=== PATIENT | female | born 1935 | race Caucasian/White ===

== ENCOUNTER 2017-06-18 09:14 | Inpatient (IN) | payer MEDICARE, MEDICAID ==
[2017-06-18] MEDS ORDERED: Albuterol/Ipratropium Neb 3 ML AERS HHN ONE ×2 (10:02→10:24)
--- NOTE | 2017-06-18 10:11 | ED Physician Chart ---
ED Chief Complaint/HPI - Patient Information Date Seen:: 06/18/17 Time Seen:: 10:00 Chief Complaint:: Wheeze and weakness History of Present Illness:: 81 yo female was brought from [facility] to ER for evaluation of weakness, wheezing and SOB. Allergies:: Allergies Allergy/AdvReac Type Severity Reaction Status Date / Time No Known Allergies Allergy Verified 06/18/17 09:17 Vitals:: Vital Signs - 8 hr 06/18/17 09:19 Temp 97.8 F HR 75 RR 16 BP 156/65 O2 Sat % 83 ED Review of Systems - Review of Systems General/Constitutional: Weakness Skin: No bruising Head: No headache Eyes: No pain ENT: No nasal drainage Neck: No neck pain Cardio Vascular: No chest pain Pulmonary: SOB, Wheezing GI: No nausea, No vomiting G/U: Other (urinary incontinent) ED Past Medical History - Past Medical History Past Medical History: HTN, CAD, Dyslipidemia, Thyroid disorder (thyroid mass), Cataract, Other (MS, dysphagia) Social History: Non Smoker, No Alcohol, No Drug Use Psychiatricy History: Other (anxiey) Family Medical History - Family Member Sister History Unknown: Yes ED Physical Exam - Physical Examination General/Constitutional: Awake Head: Atraumatic Eyes: PERRL, EOMI Skin: No ecchymosis ENMT: Nasal exam nl Neck: No nuchal rigidity Other Respiratory comments:: Wheeze Cardio Vascular: RRR, NL S1 S2 Other Cardio Vascular comments:: II/ systolic murmur GI: No tenderness/rebounding/guarding Other Extremities comments:: weakness, motor strength 4/5 all 4 extremities Other Neuro/Psych comments:: oriented x 3 ED Labs/Radiology/EKG Results - Radiology Results Results: CXR: LLL pneumonia and effusion, CHF - EKG Interpretations EKG Time:: 10:27 Rate & Rhythm: Atrial premature complex [place]: Left ventricular hypertrophy ED Assessment - Assessment General Assessment: LLL pneumonia Leukocytosis Hypoxemia UTI Assessment/Comments:: DuoNeb Rocephin Azithromycin NS 1L bolus Admit to med surg with tele ED Septic Shock - . Is Septic Shock (SBP<90, OR Lactate>4 mmol\L) present?: No - <6hrs of presentation: Vital Signs: Vital Signs - 8 hr 06/18/17 09:19 Temp 97.8 F HR 75 RR 16 BP 156/65 O2 Sat % 83 ED Reassessment (Disposition) - Reassessment Reassessment Condition:: Improved - Patient Disposition Discharge/Transfer:: Acute Care w/in this hosp Admitting Medical Physician:: Sinai Coto
[2017-06-18 10:31] LABS: HEMATOCRIT 35.5 % (41.0-60); HEMOGLOBIN 11.5 gm/dL (12-16); MEAN CELL VOLUME 92.3 fl (81-100); MEAN CORPUSCULAR HGB CONC 32.5 pg (28.0-36.0); MEAN PLATELET VOLUME 8.8 fl; PLATELET COUNT 208 Th/cmm (150-400); RED BLOOD COUNT 3.84 Mil/cmm (3.80-5.20)
[2017-06-18 10:35] LABS: MANUAL DIFF REQUIRED? YES
--- NOTE | 2017-06-18 10:43 | Diagnostic Imaging Report ---
Exam: Portable chest x-ray. HISTORY: Shortness of breath. Findings: Portable examination of the chest at 1029 hours reviewed. No prior studies available comparison The study demonstrates left lower lobe pneumonia superimposed effusion. Mild congestion present. Mediastinal structures midline the heart is not enlarged. Bony thorax intact. IMPRESSION: Left lower lobe pneumonia and effusion follow-up dictation recommended. Congestive heart failure changes bilaterally.
[2017-06-18 10:50] LABS: ALLEN TEST YES; pH 7.37 (7.35-7.45)
[2017-06-18] MEDS ORDERED: cefTRIAXone 1 GM in Sodium Chloride 0.9% 50 ML IV ONE (10:55)
[2017-06-18] MEDS ORDERED: Azithromycin 500 MG in Sodium Chloride 0.9% 250 ML IV ONE (10:56)
[2017-06-18 11:02] LABS: ALBUMIN 3.3 gm/dL (3.7-5.3); ALKALINE PHOSPHATASE 99 U/L (34-104); BUN - UREA NITROGEN 46 mg/dL (7-25); CALCIUM SERUM 9.9 mg/dL (8.6-10.3); CARBON DIOXIDE 28.3 mEq/L (21.0-31.0); CHLORIDE 97 mEq/L (98-107); CREATININE - SERUM 1.1 mg/dL (0.6-1.2); GLUCOSE 125 mg/dL (70-105); POTASSIUM SERUM 4.4 mEq/L (3.5-5.1); SGOT 15 U/L (13-39); SGPT/ALT 7 U/L (7-52)
[2017-06-18 11:20] LABS: ANION GAP 12.1 (7.0-16.0); SODIUM SERUM 133 mEq/L (136-145)
[2017-06-18 11:21] LABS: ALB/GLOB RATIO 0.7 (1.0-1.8); TOTAL PROTEIN,SERUM 7.9 gm/dL (6.0-8.3)
[2017-06-18] MEDS ORDERED: Sodium Chloride 0.9% 1,000 ML IV ONE (11:26)
[2017-06-18 11:39] LABS: BAND NEUTROPHILE 4 % (0-10); LYMPHOCYTE 15 % (20-50); MONOCYTE 3 % (2-10); NEUTROPHILS 74 % (40-80); TOTAL CELLS COUNTED 100
[2017-06-18] MEDS ORDERED: Albuterol Nebulizer 2.5mg/3mL HHN ONE (11:39)
[2017-06-18] MEDS ORDERED: Ipratropium Neb 0.5 mg/2.5 mL UD HHN ONE (11:39)
[2017-06-18 11:40] LABS: BASOPHIL 3 % (0-3); EOSINOPHIL 1 % (0-5)
[2017-06-18 11:55] LABS: URINE MICROSCOPIC INDICATED? YES; URINE SOURCE CATH
[2017-06-18 12:04] LABS: URINE BILIRUBIN SMALL (NEGATIVE); URINE BLOOD SMALL (NEGATIVE); URINE GLUCOSE (UA) NEGATIVE (NEGATIVE); URINE KETONE NEGATIVE (NEGATIVE); URINE LEUKOCYTE ESTERASE MODERATE (NEGATIVE); URINE NITRATE NEGATIVE (NEGATIVE); URINE PROTEIN 30 mg/dL (NEGATIVE)
[2017-06-18] MEDS ORDERED: Ipratropium Neb 0.5 mg/2.5 mL UD HHN PRN (12:19)
[2017-06-18 12:22] LABS: URINE CLARITY CLOUDY (CLEAR); URINE COLOR YELLOW
[2017-06-18 13:09] LABS: URINE BACTERIA 3+ /hpf (NONE SEEN); URINE EPITHELIAL CELLS FEW /lpf (FEW)
[2017-06-18] MEDS: Hydrocodone/APAP 5mg/325mg Tab PO PRN (14:38)
[2017-06-18] MEDS: Sodium Chloride 0.9% 1,000 ML IV SCH (14:41)
[2017-06-18 14:57] LABS: A1C % 6.3 % (4.0-6.0)
[2017-06-18] MEDS ORDERED: Pneumococcal Vaccine 0.5 mL Vial IM ONE (16:12)
[2017-06-18] MEDS: Albuterol/Ipratropium Neb 3 ML AERS HHN SCH (21:01)
[2017-06-18] MEDS: Budesonide 0.5 Mg/2 mL Ud HHN SCH (21:02)
--- NOTE | 2017-06-19 00:02 | Consultation ---
DATE OF CONSULTATION: 06/18/2017 PULMONARY AND CRITICAL CARE CONSULTATION REASON FOR CONSULTATION: Shortness of breath with abnormal chest x-ray. CONSULT NOTE: This is an 81-year-old female who apparently lives with her son in [place]. Initially she tells me she fell down ____ hurting the right arm, but subsequently she claims that she has coughing and more shortness of breath and feels more weak, so came to the hospital. No chest pain. Denies of any other fever or chills prior to coming to the hospital, though the patient is not the best historian at this time. She has been walking very minimally with a walker, etc. No other related symptomatology. PAST MEDICAL HISTORY: History of cardiac problem, diabetic problem, and hypertension problem. ALLERGIES: Nil. MEDICATIONS: She does take some codeine at home. History is very minimal to nil as the patient seemingly is a poor historian. PHYSICAL EXAMINATION: GENERAL: This is an elderly looking female, awake, very slow, and not in any acute distress. VITAL SIGNS: The patient's recorded vitals: Temperature is 100.2, blood pressure is 115/47, saturation in mid 90s on 2 liters. HEENT: Examination of the head is essentially unremarkable. Pupils appear to be equal and reactive to light. Conjunctivae are slightly pallor. Oral cavity seems to be with partial dentures with small oropharyngeal opening. NECK: Very short. CHEST: On auscultation, there is diminished air entry with occasional rhonchi. HEART: Distant. No gallop or murmur. ABDOMEN: Slightly protuberant, obese, and nontender. EXTREMITIES: Shows some deformed joint, probably from osteoarthritis. Very minimal peripheral edema. DIAGNOSTIC STUDIES: The patient's chest x-ray shows some haziness in the left side indicative of effusion with some also right perihilar fullness. LABORATORY DATA: White count is 18,000, hemoglobin 8.5 lymphocytes 15. ABG shows pCO2 of 59, pO2 of 52. Electrolytes are okay with BUN 46, sugar is 125, hemoglobin A1c 6.3. BNP is 91. Urine shows cloudy urine with small moderate amount of positive leukocyte esterase and urine bacteria few, 3+. ASSESSMENT: 1. The patient is in acute on chronic respiratory failure, most likely this is possibly healthcare-associated pneumonia with possibly parapneumonic effusion. 2. Congestive heart failure, possible, but doubt it with history of previous cardiac problem. 3. Suspect severe obstructive sleep apnea syndrome with cor pulmonale, primarily one of the issues that we deal with. 4. Urosepsis with recent injury of the right shoulder and history of morbid obesity, diabetes mellitus, and hypertension. PLANS AND SUGGESTIONS: We will go ahead and get aggressive inhalation treatment, bronchodilator therapy. We will screen for flu antigen and we will get empiric antibiotics, empirical dose of Lasix, and also we will go ahead and empirically put her on a BiPAP and follow up with some lab studies, etc. in next 24-48 hours and see how she does and go from there. JOB# [id number]
[2017-06-19] MEDS: Morphine Sulfate 2 mg/mL 1mL Syr IVP PRN (01:58)
[2017-06-19] MEDS: Hydrocodone/APAP 5mg/325mg Tab PO PRN ×3 (03:28→20:23)
[2017-06-19 06:19] LABS: ANION GAP 8.8 (7.0-16.0); BUN - UREA NITROGEN 39 mg/dL (7-25); CALCIUM SERUM 8.6 mg/dL (8.6-10.3); CARBON DIOXIDE 30.3 mEq/L (21.0-31.0); CHLORIDE 100 mEq/L (98-107); CREATININE - SERUM 0.8 mg/dL (0.6-1.2); GLUCOSE 112 mg/dL (70-105); POTASSIUM SERUM 4.1 mEq/L (3.5-5.1); SODIUM SERUM 135 mEq/L (136-145)
[2017-06-19 06:29] LABS: ALB/GLOB RATIO 0.8 (1.0-1.8); ALBUMIN 2.7 gm/dL (3.7-5.3); BILIRUBIN,DIRECT 0.23 mg/dL (0.0-0.2); BILIRUBIN,TOTAL 0.6 mg/dL (0.3-1.0); TOTAL PROTEIN,SERUM 6.1 gm/dL (6.0-8.3)
[2017-06-19 06:48] LABS: % EOSINOPHILS 2.4 % (0.0-5.0); % LYMPHOCYTES 9.7 % (20.0-50.0); % NEUTROPHILS 81.9 % (40.0-80.0); EOSINOPHILE ABSOLUTE 0.3 Th/cmm (0.1-0.4); HEMOGLOBIN 9.9 gm/dL (12-16); LYMPHOCYTE ABSOLUTE 1.1 Th/cmm (1.5-3.0); MEAN CELL VOLUME 90.9 fl (81-100); MEAN CORPUSCULAR HEMOGLOBIN 30.7 pg (27.0-31.0); MEAN CORPUSCULAR HGB CONC 33.7 pg (28.0-36.0); MEAN PLATELET VOLUME 8.8 fl; MONOCYTE ABSOLUTE 0.7 Th/cmm (0.3-1.0); NEUTROPHILE ABSOLUTE 8.9 Th/cmm (1.8-8.0); PLATELET COUNT 174 Th/cmm (150-400); RED BLOOD COUNT 3.24 Mil/cmm (3.80-5.20); RED CELL DISTRIBUTION WIDTH 13.5 % (11.5-20.0)
[2017-06-19 07:16] LABS: HEMATOCRIT 29.4 % (41.0-60)
[2017-06-19] MEDS: Budesonide 0.5 Mg/2 mL Ud HHN SCH ×2 (07:27→19:51)
[2017-06-19] MEDS: Albuterol/Ipratropium Neb 3 ML AERS HHN SCH ×4 (07:45→19:51)
--- NOTE | 2017-06-19 08:25 | History & Physical ---
ADMIT DATE: 06/18/2017 CHIEF COMPLAINT: Severe shortness of breath, fevers, cough, and congestion. HISTORY OF PRESENT ILLNESS: The patient is a pleasant 81-year-old obese female. She has history of hypertension, COPD, chronic pain, and unsteady gait. At the [facility] facility, she started experiencing severe cough, shortness of breath, and has decreased O2 saturation. She was sent to the hospital where she was found to have aspiration pneumonia. PAST MEDICAL HISTORY: Significant for depression, hypertension, anxiety, and obesity. SOCIAL HISTORY: Denies any alcohol, tobacco, or drug abuse. FAMILY HISTORY: Noncontributory. ALLERGIES: No known drug allergies. PAST SURGICAL HISTORY: No recent major surgeries. MEDICATIONS: Home medications reviewed and reconciled. Medications, all as mentioned above. All medications reviewed and reconciled. REVIEW OF SYSTEMS: GENERAL: Positive recent fatigue and decreased appetite. HEENT: No recent head trauma or change in vision, taste, hearing, or smell. Oral: Denies any pain or discharge. NECK: No recent tracheal deviation. ABDOMEN: No recent pain or distension. RESPIRATORY: Positive for cough, congestion, and shortness of breath. SKIN: No recent rashes. EXTREMITIES: She has history of edema. NEUROLOGIC: She has history of neuropathic pain in the lower extremities bilaterally. MUSCULOSKELETAL: Positive for unsteady gait. PHYSICAL EXAMINATION: VITAL SIGNS: Temperature is 97.9 degrees, heart rate is 83, respirations 79, blood pressure 120/59. Currently, no pain. GENERAL: No acute distress, awake, alert, but weak. HEENT: No acute issues. NECK: Trachea is midline. No JVD. CARDIOVASCULAR: Regular rate and rhythm. ABDOMEN: Nontender, nondistended. RESPIRATORY: Decreased breath sounds bilaterally. Rales and congestion. She has cough and congestion bilaterally. SKIN: No rashes. PSYCHIATRIC: No psychosis or hallucinations. NEUROLOGIC: Stable. MUSCULOSKELETAL: Decreased muscle strength in lower extremities. LABORATORY DATA: White count is 18, hemoglobin 11.5, platelet count 208,000. ABG shows pH of 7.37, pO2 52, pCO2 59. Sodium 133, potassium is 4.4, BUN 46, creatinine 1.1, glucose is 125. Hemoglobin A1c is 6.3. ASSESSMENT/PLAN: 1. Aspiration pneumonia. 2. Acute hypoxemic respiratory failure. 3. Sepsis. 4. Moderate malnutrition. 5. Urinary tract infection. 6. Hypertension. 7. Obese. 8. Congestive heart failure. 9. Diabetes mellitus. PLAN: The patient is on breathing treatments, O2, and Dr. Nava saw the patient and put her on BiPAP. She is breathing better today. Continue breathing treatments. She is on IV Zosyn. She also has CHF changes on her chest x-ray. I will consult Pulmonary as well. ABG shows acute respiratory failure. Her white count is trending down. Continue breathing treatments. JOB# [id number]
[2017-06-19] MEDS: Escitalopram Oxalate 5 mg Tab PO SCH (09:18)
[2017-06-19] MEDS: Atorvastatin Calcium 10 MG TAB PO SCH (09:19)
[2017-06-19 09:23] LABS: pH 7.39 (7.35-7.45)
[2017-06-19 09:24] LABS: ALLEN TEST Y
--- NOTE | 2017-06-19 09:57 | Diagnostic Imaging Report ---
CT scan of the chest without intravenous contrast HISTORY: Shortness of breath Total DLP equals 404 CTDI equals 11.6 Axial sections were obtained from a level above the clavicles down to level below the diaphragm. The exam demonstrates partial visualization of markedly enlarged right lobe of the thyroid gland with evidence of nodular changes. 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 Nodular changes also noted within a mildly enlarged left lobe of the thyroid gland. A thyroid ultrasound exam would provide additional assessment and evaluation is needed. There is a moderate left pleural effusion. Pleural thickening along with nonspecific infiltrate noted in the right lower lobe. Pneumonia cannot be excluded. Parenchymal changes noted in the left perihilar region that may be related to compressed lung. The heart is enlarged. Coronary artery and atherosclerotic vascular calcification noted. Limited sections below the diaphragm demonstrate a markedly dilated gallbladder. Significance should be correlated clinically. If necessary, sonography may be helpful. IMPRESSION: 1. Cardiomegaly with evidence of severe coronary artery and atherosclerotic vascular calcification 2. Small to moderate left pleural effusion 3. Right lower lobe infiltrate/consolidation/atelectasis. Mild changes also noted in the left lower lobe. Pneumonia cannot be excluded. 4. Markedly enlarged right lobe of the thyroid gland with nodular changes associated with displacement of the trachea to the left. Mild enlargement left lobe of the thyroid gland. A thyroid ultrasound exam would provide additional assessment detail if needed. 5. Dilated gallbladder. Significance should be correlated clinically and with sonography if needed.
[2017-06-19] MEDS ORDERED: Probiotic Screen MC PRN (15:30)
[2017-06-19] MEDS: Sodium Chloride 0.9% 1,000 ML IV SCH (17:44)
--- NOTE | 2017-06-19 23:22 | Progress Notes ---
DATE: 06/19/2017 PROBLEM LIST: 1. Abnormal chest x-ray. 2. Suspect obstructive sleep apnea syndrome. 3. History of fall with right shoulder pain. SYMPTOMS: The patient is complaining of pain on the left heel, but otherwise unremarkable. Also, complained pain in the right shoulder, less coughing, less wheezing, less shortness of breath. No respiratory distress, etc. PHYSICAL EXAMINATION: VITAL SIGNS: The patient's temperature is 97.2, blood pressure is 103/50, and saturation 96 on 2 liters. NECK: Veins not visualized. CHEST: Shows diminished air entry at the left base. HEART: Regular. ABDOMEN: Soft, nontender. EXTREMITIES: Left leg shows some tenderness in the calf. Otherwise, unremarkable. LABORATORY DATA: The patient's lab test shows WBC 11,000, hemoglobin 10.9 and ABG shows compensated respiratory acidemia and a pO2 is 60 on 28% of oxygen. CT reviewed appears to be chronic interstitial changes in the left base with a [id number] effusion on the left side. ASSESSMENT: The patient is clinically stable. ____ left side exact reason is not clearcut, previous appears to be chronic changes on the left base. PLANS AND SUGGESTIONS: We will continue current management, aggressive inhalation treatment, nocturnal BiPAP. We will check the DVTs study on the left leg and go from there. JOB# [id number]
[2017-06-20] MEDS: Morphine Sulfate 2 mg/mL 1mL Syr IVP PRN ×2 (01:45→12:43)
[2017-06-20] MEDS: Hydrocodone/APAP 5mg/325mg Tab PO PRN ×2 (05:41→16:19)
[2017-06-20 06:12] LABS: % EOSINOPHILS 4.7 % (0.0-5.0); % LYMPHOCYTES 13.7 % (20.0-50.0); % MONOCYTES 7.4 % (2.0-10.0); % NEUTROPHILS 74.2 % (40.0-80.0); EOSINOPHILE ABSOLUTE 0.3 Th/cmm (0.1-0.4); HEMATOCRIT 30.7 % (41.0-60); HEMOGLOBIN 10.4 gm/dL (12-16); MEAN CELL VOLUME 91.7 fl (81-100); MEAN CORPUSCULAR HGB CONC 33.8 pg (28.0-36.0); MEAN PLATELET VOLUME 8.1 fl; MONOCYTE ABSOLUTE 0.5 Th/cmm (0.3-1.0); NEUTROPHILE ABSOLUTE 5.2 Th/cmm (1.8-8.0); PLATELET COUNT 192 Th/cmm (150-400); RED BLOOD COUNT 3.35 Mil/cmm (3.80-5.20); RED CELL DISTRIBUTION WIDTH 13.5 % (11.5-20.0)
[2017-06-20 06:55] LABS: ANION GAP 8.3 (7.0-16.0); BUN - UREA NITROGEN 26 mg/dL (7-25); CARBON DIOXIDE 32.4 mEq/L (21.0-31.0); CHLORIDE 102 mEq/L (98-107); CREATININE - SERUM 0.7 mg/dL (0.6-1.2); GLUCOSE 105 mg/dL (70-105); POTASSIUM SERUM 3.7 mEq/L (3.5-5.1); SODIUM SERUM 139 mEq/L (136-145)
[2017-06-20] MEDS: Budesonide 0.5 Mg/2 mL Ud HHN SCH ×2 (07:07→19:48)
[2017-06-20] MEDS: Albuterol/Ipratropium Neb 3 ML AERS HHN SCH ×4 (07:07→19:48)
[2017-06-20] MEDS: Escitalopram Oxalate 5 mg Tab PO SCH (09:02)
[2017-06-20] MEDS: Atorvastatin Calcium 10 MG TAB PO SCH (09:02)
[2017-06-20] MEDS: Lactobacillus Rhamnosus GG 15 Billion CFU CAP.SPRINK PO SCH (09:02)
--- NOTE | 2017-06-20 09:28 | General Progress Note ---
Subjective - Review of Systems Service Date: 06/20/17 Subjective: Pt seen and eval. Resting in bed. SOB with exertion. No fevers or chills. No cough. Weak. Low appetite. Seen by pulm as well. Bipap ordered. Objective - Results Result Diagrams: 06/20/17 06:02 06/20/17 06:02 Recent Labs: Laboratory Last Values WBC 7.0 Th/cmm (4.8-10.8) D 06/20/17 06:02 RBC 3.35 Mil/cmm (3.80-5.20) L 06/20/17 06:02 Hgb 10.4 gm/dL (12-16) L 06/20/17 06:02 Hct 30.7 % (41.0-60) L 06/20/17 06:02 MCV 91.7 fl (81-100) 06/20/17 06:02 MCH 31.0 pg (27.0-31.0) 06/20/17 06:02 MCHC Differential 33.8 pg (28.0-36.0) 06/20/17 06:02 RDW 13.5 % (11.5-20.0) 06/20/17 06:02 Plt Count 192 Th/cmm (150-400) 06/20/17 06:02 MPV 8.1 fl 06/20/17 06:02 Neutrophils % 74.2 % (40.0-80.0) 06/20/17 06:02 Band Neutrophils % 4 % (0-10) 06/18/17 10:20 Lymphocytes % 13.7 % (20.0-50.0) L 06/20/17 06:02 Monocytes % 7.4 % (2.0-10.0) 06/20/17 06:02 Eosinophils % 4.7 % (0.0-5.0) 06/20/17 06:02 Basophils % 0.0 % (0.0-2.0) 06/20/17 06:02 Neutrophils (Manual) 74 % (40-80) 06/18/17 10:20 Lymphocytes 15 % (20-50) L 06/18/17 10:20 Monocytes 3 % (2-10) 06/18/17 10:20 Eosinophils 1 % (0-5) 06/18/17 10:20 Basophils 3 % (0-3) 06/18/17 10:20 Specimen Source ARTERIAL 06/19/17 09:12 Sample Site RL 06/19/17 09:12 pH 7.39 (7.35-7.45) 06/19/17 09:12 pCO2 55.0 mmHg (35.0-45.0) H 06/19/17 09:12 pO2 60.0 mmHg (80.0-100.0) L 06/19/17 09:12 HCO3 30.0 mEq/L (20.0-26.0) H 06/19/17 09:12 Base Excess 6.8 mEq/L (-3.0-3.0) H 06/19/17 09:12 O2 Saturation 90.0 % (92.0-100.0) L 06/19/17 09:12 Chris Test Y 06/19/17 09:12 Vent Rate N/A 06/19/17 09:12 Inspired O2 28 06/19/17 09:12 Tidal Volume N/A 06/19/17 09:12 PEEP N/A 06/19/17 09:12 Pressure (ins/psv/peep) N/A 06/19/17 09:12 Critical Value O.GARCIA 06/19/17 09:12 Sodium 139 mEq/L (136-145) 06/20/17 06:02 Potassium 3.7 mEq/L (3.5-5.1) 06/20/17 06:02 Chloride 102 mEq/L (98-107) 06/20/17 06:02 Carbon Dioxide 32.4 mEq/L (21.0-31.0) H 06/20/17 06:02 Anion Gap 8.3 (7.0-16.0) 06/20/17 06:02 BUN 26 mg/dL (7-25) H 06/20/17 06:02 Creatinine 0.7 mg/dL (0.6-1.2) 06/20/17 06:02 Est GFR ( Amer) TNP 06/20/17 06:02 Est GFR (Non-Af Amer) TNP 06/20/17 06:02 BUN/Creatinine Ratio 37.1 06/20/17 06:02 Glucose 105 mg/dL (70-105) 06/20/17 06:02 Hemoglobin A1c % 6.3 % (4.0-6.0) H 06/18/17 10:20 Whole Bld Lactic Acid 1.75 mmol/L (0.60-1.99) 06/18/17 10:20 Calcium 9.0 mg/dL (8.6-10.3) 06/20/17 06:02 Magnesium 2.6 mg/dL (1.9-2.7) 06/18/17 10:20 Total Bilirubin 0.6 mg/dL (0.3-1.0) 06/19/17 05:25 Direct Bilirubin 0.23 mg/dL (0.0-0.2) H 06/19/17 05:25 AST 17 U/L (13-39) 06/19/17 05:25 ALT 9 U/L (7-52) 06/19/17 05:25 Alkaline Phosphatase 68 U/L (34-104) 06/19/17 05:25 Troponin I 0.03 ng/mL (0.01-0.05) 06/18/17 10:20 B-Natriuretic Peptide 91.1 pg/mL (5.0-100.0) 06/18/17 10:20 Total Protein 6.1 gm/dL (6.0-8.3) 06/19/17 05:25 Albumin 2.7 gm/dL (3.7-5.3) L 06/19/17 05:25 Globulin 3.4 gm/dL 06/19/17 05:25 Albumin/Globulin Ratio 0.8 (1.0-1.8) L 06/19/17 05:25 TSH 0.73 uIU/ml (0.34-5.60) 06/19/17 05:25 Urine Source CATH 06/18/17 11:00 Urine Color YELLOW 06/18/17 11:00 Urine Clarity CLOUDY (CLEAR) H 06/18/17 11:00 Urine pH 5.0 (4.6 - 8.0) 06/18/17 11:00 Ur Specific [place] >= 1.030 (1.005-1.030) 06/18/17 11:00 Urine Protein 30 mg/dL (NEGATIVE) H 06/18/17 11:00 Urine Glucose (UA) NEGATIVE mg/dL (NEGATIVE) 06/18/17 11:00 Urine Ketones NEGATIVE mg/dL (NEGATIVE) 06/18/17 11:00 Urine Blood SMALL (NEGATIVE) H 06/18/17 11:00 Urine Nitrate NEGATIVE (NEGATIVE) 06/18/17 11:00 Urine Bilirubin SMALL (NEGATIVE) H 06/18/17 11:00 Urine Urobilinogen 2.0 E.U./dL (0.2 - 1.0) 06/18/17 11:00 Ur Leukocyte Esterase MODERATE (NEGATIVE) H 06/18/17 11:00 Urine RBC 2-5 /hpf (0-5) 06/18/17 11:00 Urine WBC 10-25 /hpf (0-5) H 06/18/17 11:00 Ur Epithelial Cells FEW /lpf (FEW) 06/18/17 11:00 Urine Bacteria 3+ /hpf (NONE SEEN) H 06/18/17 11:00 - Physical Exam Vitals and I&O: Vital Signs Temp 97.0 F 06/20/17 04:00 Pulse 84 06/20/17 09:03 Resp 18 06/20/17 04:00 BP 104/51 06/20/17 09:03 Pulse Ox 99 06/20/17 04:00 Intake & Output 06/19/17 06/20/17 06/20/17 18:59 06:59 18:59 Intake Total 1420 1300 Output Total 3 Balance 1417 1300 Weight (lbs) 97.658 kg 97.568 kg Intake: Intake, IV Amount 1100 1100 Piperacillin Sodium/ 100 100 Tazobact 3.375 gm In Sodium Chloride 0.9% 50 ml @ 100 mls/hr IV Q6H ANDRES Rx#:[id number] Sodium Chloride 0.9% 1, 1000 1000 000 ml @ 50 mls/hr IV . Q20H ANDRES Rx#:[id number] Oral 320 200 Output: Urine 3 Other: # Voids 3 2 Active Medications: Current Medications Acetaminophen (Tylenol) 650 mg PO Q6H PRN PRN Reason: HEADACHE/TEMP ABOVE 100F Stop: 08/17/17 14:00 Last Admin: 06/18/17 14:38 Dose: 650 mg Acetaminophen/Hydrocodone Bitart ([place] 5mg/325mg) 1 tab PO TID PRN PRN Reason: Pain (Mild) Stop: 08/17/17 13:56 Last Admin: 06/20/17 05:41 Dose: 1 tab Albuterol/Ipratropium (Duoneb Neb) 3 ml HHN Q1BYLOM [facility] Stop: 08/17/17 18:59 Last Admin: 06/20/17 07:07 Dose: 3 ml Atorvastatin Calcium (Lipitor) 20 mg PO DAILY ANDRES Stop: 08/18/17 08:59 Last Admin: 06/20/17 09:02 Dose: 20 mg Budesonide (Pulmicort) 0.5 mg HHN BIDRT ANDRES Stop: 08/17/17 18:59 Last Admin: 06/20/17 07:07 Dose: 0.5 mg Docusate Sodium (Colace) 100 mg PO DAILY ANDRES Stop: 08/18/17 08:59 Last Admin: 06/20/17 09:02 Dose: 100 mg Escitalopram Oxalate (Lexapro) 5 mg PO DAILY ANDRES PRN Reason: Protocol Stop: 08/18/17 08:59 Last Admin: 06/20/17 09:02 Dose: 5 mg Heparin Sodium (Porcine) (Heparin) 5,000 units SUBQ Q12HR ANDRES Stop: 08/17/17 20:59 Last Admin: 06/20/17 09:04 Dose: 5,000 units Piperacillin Sod/Tazobactam (Sod 3.375 gm/ Sodium Chloride) 50 mls @ 100 mls/ hr IV Q6H [facility]RES Stop: 08/17/17 13:59 Last Admin: 06/20/17 09:04 Dose: 100 mls/hr Sodium Chloride (Nacl 0.9%) 1,000 mls @ 50 mls/hr IV .Q20H ANDRES Stop: 08/17/17 13:59 Last Infusion: 06/19/17 19:45 Dose: Infused Ipratropium [place] (Atrovent Neb 0.5mg/2.5ml) 0.5 mg HHN Q4HR PRN PRN Reason: sob Stop: 08/17/17 12:17 Isosorbide Dinitrate (Isordil) 20 mg PO DAILY [facility] Stop: 08/18/17 08:59 Last Admin: 06/20/17 09:02 Dose: 20 mg Lactobacillus Rhamnosus (Culturelle 15b) 1 each PO DAILY ANDRES Stop: 08/19/17 08:59 Last Admin: 06/20/17 09:02 Dose: 1 each Lorazepam (Ativan) 2 mg IVP Q4HR PRN; Protocol PRN Reason: Anxiety Stop: 08/17/17 14:00 Losartan Potassium (Cozaar) 100 mg PO DAILY ANDRES Stop: 08/18/17 08:59 Last Admin: 06/20/17 09:03 Dose: 100 mg Miscellaneous (Zosyn Iv Per Pharmacy) 1 ea PRN PRN PRN Reason: PROTOCOL Stop: 08/17/17 11:41 Miscellaneous (Probiotic Screen) 1 ea PRN PRN PRN Reason: PROTOCOL Stop: 08/18/17 15:29 Morphine Sulfate (Morphine) 2 mg IVP Q4H PRN PRN Reason: moderate pain Stop: 08/17/17 14:00 Last Admin: 06/20/17 01:45 Dose: 2 mg Ondansetron HCl (Zofran) 4 mg IVP Q6H PRN PRN Reason: Nausea / Vomiting Stop: 08/17/17 14:00 Potassium Chloride (Klor-Con) 40 meq PO DAILY PRN PRN Reason: k level less than 3.5 Stop: 08/17/17 14:00 Zolpidem Tartrate (Ambien) 10 mg PO HS PRN PRN Reason: Insomnia Stop: 08/18/17 20:38 Last Admin: 06/19/17 20:56 Dose: 10 mg General: Cooperative, Mild distress HEENT: Atraumatic, PERRLA Neck: Supple, JVD Cardiovascular: Regular rate, Normal S1, Normal S2 Lungs: Other (Has wheezing and congestion) Assessment/Plan - Assessment Assessment: Asp Pna Acute hypoxemic resp fail Sepsis Mod [place] UTI HTN Obese CHF DM - Plan Plan: Continue bipap, IV Zosyn, O2, and breathing tx. FU on labs, cxr. Dr. [place] Nava following as pulm. Prog is guarded.
[2017-06-20 09:38] LABS: pH 7.44 (7.35-7.45)
--- NOTE | 2017-06-20 09:49 | Diagnostic Imaging Report ---
Left calcaneus (2 views) HISTORY: Pain Generalized osteoporosis. No definite acute bony amenities. No definite plain radiographic evidence of osteomyelitis. No fractures seen at this time. Soft tissue swelling. IMPRESSION: 1. No definite acute bony abnormalities.
[2017-06-20] MEDS: Sodium Chloride 0.9% 1,000 ML IV SCH (13:16)
--- NOTE | 2017-06-20 21:21 | Progress Notes ---
DATE: 06/20/2017 PULMONARY/CRITICAL CARE PROGRESS NOTE PROBLEM LIST: 1. Respiratory failure. 2. Left-sided small effusion. 3. Questionable pneumonitis, acute versus chronic in the right basal area. SYMPTOMS: Nil. The patient is quite obsessed from pain in the leg. No specific other symptomatology otherwise and coughing is much improved. PHYSICAL EXAMINATION: VITAL SIGNS: Temperature is 97.6, blood pressure 136/54, saturation is 96% on 2 liters per minute. NECK: Veins not visualized. CHEST: Shows diminished air entry without adventitious breath sound. HEART: Regular. ABDOMEN: Soft, nontender. EXTREMITIES: Shows no peripheral edema. LABORATORY DATA: White count is trending 7000 from 18,000 two days ago. ABG showed pO2 is 49, pCO2 is 49, pH of 7.44. The patient's electrolytes are okay. ASSESSMENT: The patient clinically seemingly much improved. PLANS AND SUGGESTIONS: We will go ahead and continue current treatment. DVT studies are pending and respiratory altman should be okay to be discharged after chest x-ray tomorrow and go from there. JOB# [id number]
[2017-06-21] MEDS: Hydrocodone/APAP 5mg/325mg Tab PO PRN ×3 (01:54→17:35)
[2017-06-21] MEDS ORDERED: Albuterol/Ipratropium Neb 3 ML AERS HHN PRN (04:40)
[2017-06-21] MEDS ORDERED: Sodium Chloride 0.9% 1,000 ML IV SCH (04:41)
[2017-06-21] MEDS: Albuterol/Ipratropium Neb 3 ML AERS HHN SCH ×4 (07:00→19:10)
--- NOTE | 2017-06-21 07:28 | Diagnostic Imaging Report ---
Exam: Left lower extremity Doppler venous ultrasound exam HISTORY: Pain/swelling Sonographic sector images were obtained through the deep venous systems of left leg associated Doppler data was obtained. The exam demonstrates patency of the common femoral, superficial femoral, popliteal, and posterior tibial veins bilaterally. Specifically, no thrombus is seen. There are normal compressibility and augmentation responses. IMPRESSION: Negative exam for deep vein thrombophlebitis left lower extremity.
[2017-06-21 07:37] LABS: % EOSINOPHILS 4.1 % (0.0-5.0); % LYMPHOCYTES 14.4 % (20.0-50.0); % NEUTROPHILS 75.5 % (40.0-80.0); EOSINOPHILE ABSOLUTE 0.3 Th/cmm (0.1-0.4); HEMATOCRIT 29.5 % (41.0-60); MEAN CELL VOLUME 90.3 fl (81-100); MEAN CORPUSCULAR HEMOGLOBIN 30.6 pg (27.0-31.0); MEAN CORPUSCULAR HGB CONC 33.9 pg (28.0-36.0); MEAN PLATELET VOLUME 8.8 fl; MONOCYTE ABSOLUTE 0.4 Th/cmm (0.3-1.0); NEUTROPHILE ABSOLUTE 5.1 Th/cmm (1.8-8.0); RED BLOOD COUNT 3.27 Mil/cmm (3.80-5.20); RED CELL DISTRIBUTION WIDTH 13.4 % (11.5-20.0); WHITE BLOOD COUNT 6.8 Th/cmm (4.8-10.8)
[2017-06-21 07:39] LABS: PLATELET COUNT 89 Th/cmm (150-400)
[2017-06-21 07:52] LABS: ANION GAP 11.2 (7.0-16.0); BUN - UREA NITROGEN 16 mg/dL (7-25); CALCIUM SERUM 8.8 mg/dL (8.6-10.3); CARBON DIOXIDE 28.5 mEq/L (21.0-31.0); CHLORIDE 103 mEq/L (98-107); CREATININE - SERUM 0.6 mg/dL (0.6-1.2); GLUCOSE 115 mg/dL (70-105); POTASSIUM SERUM 3.7 mEq/L (3.5-5.1); SODIUM SERUM 139 mEq/L (136-145)
--- NOTE | 2017-06-21 08:08 | General Progress Note ---
Subjective - Review of Systems Service Date: 06/21/17 Subjective: Pt seen and eval. Resting in bed. SOB with exertion. No fevers or chills. No cough. Weak. Low appetite. Seen by pulm as well. Bipap ordered. On O2. Objective - Results Result Diagrams: 06/21/17 07:11 06/21/17 07:11 Recent Labs: Laboratory Last Values WBC 6.8 Th/cmm (4.8-10.8) 06/21/17 07:11 RBC 3.27 Mil/cmm (3.80-5.20) L 06/21/17 07:11 Hgb 10.0 gm/dL (12-16) L 06/21/17 07:11 Hct 29.5 % (41.0-60) L 06/21/17 07:11 MCV 90.3 fl (81-100) 06/21/17 07:11 MCH 30.6 pg (27.0-31.0) 06/21/17 07:11 MCHC Differential 33.9 pg (28.0-36.0) 06/21/17 07:11 RDW 13.4 % (11.5-20.0) 06/21/17 07:11 Plt Count 89 Th/cmm (150-400) L D 06/21/17 07:11 MPV 8.8 fl 06/21/17 07:11 Neutrophils % 75.5 % (40.0-80.0) 06/21/17 07:11 Band Neutrophils % 4 % (0-10) 06/18/17 10:20 Lymphocytes % 14.4 % (20.0-50.0) L 06/21/17 07:11 Monocytes % 6.0 % (2.0-10.0) 06/21/17 07:11 Eosinophils % 4.1 % (0.0-5.0) 06/21/17 07:11 Basophils % 0.0 % (0.0-2.0) 06/21/17 07:11 Neutrophils (Manual) 74 % (40-80) 06/18/17 10:20 Lymphocytes 15 % (20-50) L 06/18/17 10:20 Monocytes 3 % (2-10) 06/18/17 10:20 Eosinophils 1 % (0-5) 06/18/17 10:20 Basophils 3 % (0-3) 06/18/17 10:20 Specimen Source Arterial 06/20/17 09:00 Sample Site RB 06/20/17 09:00 pH 7.44 (7.35-7.45) 06/20/17 09:00 pCO2 49.0 mmHg (35.0-45.0) H 06/20/17 09:00 pO2 49.0 mmHg (80.0-100.0) L* 06/20/17 09:00 HCO3 30.8 mEq/L (20.0-26.0) H 06/20/17 09:00 Base Excess 7.9 mEq/L (-3.0-3.0) H 06/20/17 09:00 O2 Saturation 86.0 % (92.0-100.0) L 06/20/17 09:00 Chris Test NA 06/20/17 09:00 Vent Rate NA 06/20/17 09:00 Inspired O2 21 06/20/17 09:00 Tidal Volume NA 06/20/17 09:00 PEEP NA 06/20/17 09:00 Pressure (ins/psv/peep) NA 06/20/17 09:00 Critical Value SH 06/20/17 09:00 Sodium 139 mEq/L (136-145) 06/21/17 07:11 Potassium 3.7 mEq/L (3.5-5.1) 06/21/17 07:11 Chloride 103 mEq/L (98-107) 06/21/17 07:11 Carbon Dioxide 28.5 mEq/L (21.0-31.0) 06/21/17 07:11 Anion Gap 11.2 (7.0-16.0) 06/21/17 07:11 BUN 16 mg/dL (7-25) 06/21/17 07:11 Creatinine 0.6 mg/dL (0.6-1.2) 06/21/17 07:11 Est GFR ( Amer) TNP 06/21/17 07:11 Est GFR (Non-Af Amer) TNP 06/21/17 07:11 BUN/Creatinine Ratio 26.7 06/21/17 07:11 Glucose 115 mg/dL (70-105) H 06/21/17 07:11 Hemoglobin A1c % 6.3 % (4.0-6.0) H 06/18/17 10:20 Whole Bld Lactic Acid 1.75 mmol/L (0.60-1.99) 06/18/17 10:20 Calcium 8.8 mg/dL (8.6-10.3) 06/21/17 07:11 Magnesium 2.6 mg/dL (1.9-2.7) 06/18/17 10:20 Total Bilirubin 0.6 mg/dL (0.3-1.0) 06/19/17 05:25 Direct Bilirubin 0.23 mg/dL (0.0-0.2) H 06/19/17 05:25 AST 17 U/L (13-39) 06/19/17 05:25 ALT 9 U/L (7-52) 06/19/17 05:25 Alkaline Phosphatase 68 U/L (34-104) 06/19/17 05:25 Troponin I 0.03 ng/mL (0.01-0.05) 06/18/17 10:20 B-Natriuretic Peptide 91.1 pg/mL (5.0-100.0) 06/18/17 10:20 Total Protein 6.1 gm/dL (6.0-8.3) 06/19/17 05:25 Albumin 2.7 gm/dL (3.7-5.3) L 06/19/17 05:25 Globulin 3.4 gm/dL 06/19/17 05:25 Albumin/Globulin Ratio 0.8 (1.0-1.8) L 06/19/17 05:25 TSH 0.73 uIU/ml (0.34-5.60) 06/19/17 05:25 Urine Source CATH 06/18/17 11:00 Urine Color YELLOW 06/18/17 11:00 Urine Clarity CLOUDY (CLEAR) H 06/18/17 11:00 Urine pH 5.0 (4.6 - 8.0) 06/18/17 11:00 Ur Specific [place] >= 1.030 (1.005-1.030) 06/18/17 11:00 Urine Protein 30 mg/dL (NEGATIVE) H 06/18/17 11:00 Urine Glucose (UA) NEGATIVE mg/dL (NEGATIVE) 06/18/17 11:00 Urine Ketones NEGATIVE mg/dL (NEGATIVE) 06/18/17 11:00 Urine Blood SMALL (NEGATIVE) H 06/18/17 11:00 Urine Nitrate NEGATIVE (NEGATIVE) 06/18/17 11:00 Urine Bilirubin SMALL (NEGATIVE) H 06/18/17 11:00 Urine Urobilinogen 2.0 E.U./dL (0.2 - 1.0) 06/18/17 11:00 Ur Leukocyte Esterase MODERATE (NEGATIVE) H 06/18/17 11:00 Urine RBC 2-5 /hpf (0-5) 06/18/17 11:00 Urine WBC 10-25 /hpf (0-5) H 06/18/17 11:00 Ur Epithelial Cells FEW /lpf (FEW) 06/18/17 11:00 Urine Bacteria 3+ /hpf (NONE SEEN) H 06/18/17 11:00 - Physical Exam Vitals and I&O: Vital Signs Temp 96.6 F 06/21/17 07:50 Pulse 94 06/21/17 07:50 Resp 18 06/21/17 07:50 BP 111/63 06/21/17 07:50 Pulse Ox 94 06/21/17 07:50 Intake & Output 06/20/17 06/21/17 06/21/17 18:59 06:59 18:59 Intake Total 350 300 Balance 350 300 Weight (lbs) 113.897 kg 96.887 kg Intake: Intake, IV Amount 50 100 Piperacillin Sodium/ 50 100 Tazobact 3.375 gm In Sodium Chloride 0.9% 50 ml @ 100 mls/hr IV Q6H [facility] Rx#:[id number] Oral 300 200 Other: # Voids 3 5 # Bowel Movements 1 2 Stool Characteristics Brown Soft Active Medications: Current Medications Acetaminophen (Tylenol) 650 mg PO Q6H PRN PRN Reason: HEADACHE/TEMP ABOVE 100F Stop: 08/17/17 14:00 Last Admin: 06/21/17 06:13 Dose: 650 mg Acetaminophen/Hydrocodone Bitart ([place] 5mg/325mg) 1 tab PO TID PRN PRN Reason: Pain (Mild) Stop: 08/17/17 13:56 Last Admin: 06/21/17 01:54 Dose: 1 tab Albuterol/Ipratropium (Duoneb Neb) 3 ml HHN [id number] [facility] Stop: 08/17/17 18:59 Last Admin: 06/21/17 07:00 Dose: 3 ml Albuterol/Ipratropium (Duoneb Neb) 3 ml HHN Q2H PRN PRN Reason: Wheezing Stop: 08/20/17 04:39 Last Admin: 06/21/17 04:49 Dose: 3 ml Atorvastatin Calcium (Lipitor) 20 mg PO DAILY [facility] Stop: 08/18/17 08:59 Last Admin: 06/20/17 09:02 Dose: 20 mg Budesonide (Pulmicort) 0.5 mg HHN BIDRT [facility] Stop: 08/17/17 18:59 Last Admin: 06/20/17 19:48 Dose: 0.5 mg Diazepam (Valium) 5 mg PO Q12HR PRN; Protocol PRN Reason: FOR ANXIETY Stop: 08/20/17 08:59 Last Admin: 06/20/17 22:19 Dose: 5 mg Docusate Sodium (Colace) 100 mg PO DAILY [facility] Stop: 08/18/17 08:59 Last Admin: 06/20/17 09:02 Dose: 100 mg Escitalopram Oxalate (Lexapro) 5 mg PO DAILY [facility] PRN Reason: Protocol Stop: 08/18/17 08:59 Last Admin: 06/20/17 09:02 Dose: 5 mg Heparin Sodium (Porcine) (Heparin) 5,000 units SUBQ Q12HR [facility] Stop: 08/17/17 20:59 Last Admin: 06/20/17 20:46 Dose: 5,000 units Piperacillin Sod/Tazobactam (Sod 3.375 gm/ Sodium Chloride) 50 mls @ 100 mls/ hr IV Q6H [facility] Stop: 08/17/17 13:59 Last Infusion: 06/21/17 03:45 Dose: Infused Sodium Chloride (Nacl 0.9%) 1,000 mls @ 0 mls/hr IV .Q0M [facility] PRN Reason: KVO Stop: 08/20/17 04:40 Ipr[address] [place] (Atrovent Neb 0.5mg/2.5ml) 0.5 mg HHN Q4HR PRN PRN Reason: sob Stop: 08/17/17 12:17 Last Admin: 06/21/17 03:40 Dose: 0.5 mg Isosorbide Dinitrate (Isordil) 20 mg PO DAILY [facility] Stop: 08/18/17 08:59 Last Admin: 06/20/17 09:02 Dose: 20 mg Lactobacillus Rhamnosus (Culturelle 15b) 1 each PO DAILY [facility] Stop: 08/19/17 08:59 Last Admin: 06/20/17 09:02 Dose: 1 each Losartan Potassium (Cozaar) 100 mg PO DAILY [facility] Stop: 08/18/17 08:59 Last Admin: 06/20/17 09:03 Dose: 100 mg Methylprednisolone Sodium Succinate (Solu-Medrol) 40 mg IVP BID [facility] Stop: 08/20/17 08:59 Miscellaneous (Zosyn Iv Per Pharmacy) 1 ea PRN PRN PRN Reason: PROTOCOL Stop: 08/17/17 11:41 Miscellaneous (Probiotic Screen) 1 ea PRN PRN PRN Reason: PROTOCOL Stop: 08/18/17 15:29 Morphine Sulfate (Morphine) 2 mg IVP Q4H PRN PRN Reason: moderate pain Stop: 08/17/17 14:00 Last Admin: 06/20/17 12:43 Dose: 2 mg Ondansetron HCl (Zofran) 4 mg IVP Q6H PRN PRN Reason: Nausea / Vomiting Stop: 08/17/17 14:00 Potassium Chloride (Klor-Con) 40 meq PO DAILY PRN PRN Reason: k level less than 3.5 Stop: 08/17/17 14:00 Zolpidem Tartrate (Ambien) 10 mg PO HS PRN PRN Reason: Insomnia Stop: 08/18/17 20:38 Last Admin: 06/20/17 20:46 Dose: 10 mg General: Cooperative, Mild distress HEENT: Atraumatic, PERRLA Neck: Supple, JVD Cardiovascular: Regular rate, Normal S1, Normal S2 Lungs: Other (Has wheezing and congestion) Assessment/Plan - Assessment Assessment: Asp Pna Acute hypoxemic resp fail Sepsis Mod [place] UTI HTN Obese CHF DM - Plan Plan: Continue bipap, IV Zosyn, O2, and breathing tx. FU on labs, cxr. Dr. Guanako Nava following as pulm. Prog is guarded.
--- NOTE | 2017-06-21 08:53 | Diagnostic Imaging Report ---
CHEST X-RAY: AP view INDICATION: Shortness of breath COMPARISON: 06/18/2017 FINDINGS: The patient is rotated limiting the exam. Persistent left effusion is noted with left lung infiltrates. Cardiomegaly is noted. Small right effusion is suspected. IMPRESSION: Limited exam due to rotation. Persistent left effusion and left lung infiltrates are seen with probable superimposed congestive changes. Cardiomegaly.
[2017-06-21] MEDS: methylPREDNISolone SS 40 mg Vial IVP SCH ×2 (08:55→17:35)
[2017-06-21] MEDS: Atorvastatin Calcium 10 MG TAB PO SCH (08:55)
[2017-06-21] MEDS: Escitalopram Oxalate 5 mg Tab PO SCH (08:56)
[2017-06-21] MEDS: Lactobacillus Rhamnosus GG 15 Billion CFU CAP.SPRINK PO SCH (08:57)
--- NOTE | 2017-06-21 12:34 | Cardiology ---
06/19/[address] Coto. M-MODE ECHOCARDIOGRAM: Mitral valve, anterior leaflet of mitral valve shows normal excursion, EF velocity. Posterior leaflet of the mitral valve shows normal excursion. Left ventricular posterior wall shows increased thickness, normal excursion. Interventricular septum shows increased thickness, normal excursion, hypertrophy of the left ventricle, ejection fraction 70%. Left atrium normal. Aortic root shows normal dimension, sclerosis of aortic leaflets, decreased excursion, aortic stenosis. CONCLUSION: Hypertrophy of the left ventricle, aortic stenosis. A 2D ECHO: Long axis view showed normal sized left ventricle with hypertrophy of the left ventricle. Left atrium normal. Aortic root shows normal dimension, decreased excursion of aortic leaflets with aortic stenosis. Short axis view of mitral valve normal. Short axis view of aortic valve shows aortic stenosis. Apical four chamber view showed normal sized left ventricle with hypertrophy of the left ventricle. Left atrium normal. Right ventricular cavity, right atrium normal, no pericardial effusion. CONCLUSION: Hypertrophy of the left ventricle, ejection fraction 70%, aortic stenosis. Doppler study shows trace mitral regurgitation, trace tricuspid regurgitation, aortic valve area 0.82 square cm. Right ventricular systolic pressure 28 mmHg. JOB# [id number]
[2017-06-21] MEDS: Morphine Sulfate 2 mg/mL 1mL Syr IVP PRN ×2 (13:24→23:17)
[2017-06-21] MEDS: Budesonide 0.5 Mg/2 mL Ud HHN SCH (19:11)
--- NOTE | 2017-06-21 23:17 | Progress Notes ---
DATE: 06/21/2017 PULMONARY PROGRESS NOTE PROBLEM LIST: 1. Left-sided effusion, small. 2. Right-sided chronic bronchiectatic changes, questionable acute pneumonia. SYMPTOMS: Nil. The patient is quite obsessed with having pain in the lower extremity and pain medication. No specific new other symptomatology otherwise. PHYSICAL EXAMINATION: VITAL SIGNS: Recorded vital signs, temperature is 97.4, blood pressure 130/64, and saturation is 95. NECK: Veins not visualized. CHEST: Shows diminished air entry at the left base. HEART: Regular. ABDOMEN: Soft, nontender. LABORATORY DATA AND IMAGING STUDIES: The patient's white count is 6.8, hemoglobin 10 g. The patient's DVT study is negative. ASSESSMENT: The patient is clinically stable with some effusion layering on the left side on today's film. This might be chronic, but needs to be observed. PLANS AND SUGGESTIONS: Okay pulmonary altman to get to the step-down unit and followup x-rays in the next few days. I believe there may not be any indication to be on antibiotic for too long time. Continue oxygen therapy and if it is possible, nocturnal CPAP or BiPAP and go from there. JOB# [id number]
[2017-06-22] MEDS: Hydrocodone/APAP 5mg/325mg Tab PO PRN ×2 (03:16→13:43)
--- NOTE | 2017-06-22 05:21 | Consultation ---
DATE OF CONSULTATION: 06/21/[address] Coto. HISTORY OF PRESENT ILLNESS: This is an 81-year-old obese female patient, who came to the Emergency Room with shortness of breath. The patient is on BiPAP, has aspiration pneumonia. Cardiac consult is requested. No history of PND or orthopnea. The patient does have history of congestive heart failure. PAST MEDICAL HISTORY: The patient has a history of COPD, history of ataxia, hypertension, major depression, anxiety, urinary tract infection, protein-calorie malnutrition, diabetes mellitus type 2, congestive heart failure, cataract, and hyperlipidemia. FAMILY HISTORY: Unremarkable. SOCIAL HISTORY: No history of smoking or alcohol abuse. ALLERGIES: No known allergies. PHYSICAL EXAMINATION: VITAL SIGNS: Blood pressure 130/80, pulse 70, and respirations 20. HEAD: Normocephalic. No lumps or bumps. EYES: Pupils equal and reactive to light. Fundi show AV nicking, sclerae white, conjunctivae pink. ABDOMEN: Soft. Liver and spleen are not palpable. No organomegaly. Bowel sounds active. NEUROLOGIC: Unremarkable. EXTREMITIES: Peripheral pulses 2+. No pedal edema. CLINICAL IMPRESSION: 1. Acute respiratory failure, on BiPAP. 2. Acute exacerbation of chronic obstructive pulmonary disease. 3. Aspiration pneumonia. 4. Hypertension. 5. Ataxia. 6. Major depression. 7. Anxiety. 8. Urinary tract infection. 9. Protein-calorie malnutrition. 10. Diabetes mellitus type 2. 11. Congestive heart failure. 12. Diastolic dysfunction. 13. Cataract. 14. Hyperlipidemia. PLAN: The patient to continue present care, BiPAP. We will get BNP level, echocardiogram, and monitor the patient. JOB# [id number]
[2017-06-22 06:07] LABS: % EOSINOPHILS 0.1 % (0.0-5.0); % LYMPHOCYTES 10.8 % (20.0-50.0); % MONOCYTES 3.9 % (2.0-10.0); % NEUTROPHILS 85.2 % (40.0-80.0); HEMATOCRIT 29.6 % (41.0-60); LYMPHOCYTE ABSOLUTE 0.6 Th/cmm (1.5-3.0); MEAN CELL VOLUME 90.7 fl (81-100); MEAN CORPUSCULAR HEMOGLOBIN 30.7 pg (27.0-31.0); MEAN CORPUSCULAR HGB CONC 33.9 pg (28.0-36.0); MEAN PLATELET VOLUME 7.9 fl; MONOCYTE ABSOLUTE 0.2 Th/cmm (0.3-1.0); NEUTROPHILE ABSOLUTE 4.9 Th/cmm (1.8-8.0); RED BLOOD COUNT 3.26 Mil/cmm (3.80-5.20); RED CELL DISTRIBUTION WIDTH 13.4 % (11.5-20.0); WHITE BLOOD COUNT 5.7 Th/cmm (4.8-10.8)
[2017-06-22 06:08] LABS: PLATELET COUNT 215 Th/cmm (150-400)
[2017-06-22 06:27] LABS: ANION GAP 9.6 (7.0-16.0); BUN - UREA NITROGEN 16 mg/dL (7-25); CALCIUM SERUM 8.9 mg/dL (8.6-10.3); CARBON DIOXIDE 32.6 mEq/L (21.0-31.0); CHLORIDE 99 mEq/L (98-107); CREATININE - SERUM 0.7 mg/dL (0.6-1.2); GLUCOSE 158 mg/dL (70-105); POTASSIUM SERUM 3.2 mEq/L (3.5-5.1); SODIUM SERUM 138 mEq/L (136-145)
[2017-06-22] MEDS: Albuterol/Ipratropium Neb 3 ML AERS HHN SCH ×4 (07:33→19:23)
[2017-06-22] MEDS: Budesonide 0.5 Mg/2 mL Ud HHN SCH ×2 (07:42→19:36)
[2017-06-22] MEDS: Escitalopram Oxalate 5 mg Tab PO SCH (08:32)
[2017-06-22] MEDS: Atorvastatin Calcium 10 MG TAB PO SCH (08:32)
[2017-06-22] MEDS: Lactobacillus Rhamnosus GG 15 Billion CFU CAP.SPRINK PO SCH (08:33)
[2017-06-22] MEDS: Potassium Chloride 20 mEq ER Tab PO PRN (08:36)
--- NOTE | 2017-06-22 09:29 | General Progress Note ---
Subjective - Review of Systems Service Date: 06/22/17 Subjective: Pt seen and eval. Resting in bed. She's feeling better today. No sob at rest today. No fevers or chills. No cough. Weak. Low appetite. Seen by pulm as well. Bipap ordered. On O2. Objective - Results Result Diagrams: 06/22/17 06:00 06/22/17 06:00 Recent Labs: Laboratory Last Values WBC 5.7 Th/cmm (4.8-10.8) 06/22/17 06:00 RBC 3.26 Mil/cmm (3.80-5.20) L 06/22/17 06:00 Hgb 10.0 gm/dL (12-16) L 06/22/17 06:00 Hct 29.6 % (41.0-60) L 06/22/17 06:00 MCV 90.7 fl (81-100) 06/22/17 06:00 MCH 30.7 pg (27.0-31.0) 06/22/17 06:00 MCHC Differential 33.9 pg (28.0-36.0) 06/22/17 06:00 RDW 13.4 % (11.5-20.0) 06/22/17 06:00 Plt Count 215 Th/cmm (150-400) D 06/22/17 06:00 MPV 7.9 fl 06/22/17 06:00 Neutrophils % 85.2 % (40.0-80.0) H 06/22/17 06:00 Band Neutrophils % 4 % (0-10) 06/18/17 10:20 Lymphocytes % 10.8 % (20.0-50.0) L 06/22/17 06:00 Monocytes % 3.9 % (2.0-10.0) 06/22/17 06:00 Eosinophils % 0.1 % (0.0-5.0) 06/22/17 06:00 Basophils % 0.0 % (0.0-2.0) 06/22/17 06:00 Neutrophils (Manual) 74 % (40-80) 06/18/17 10:20 Lymphocytes 15 % (20-50) L 06/18/17 10:20 Monocytes 3 % (2-10) 06/18/17 10:20 Eosinophils 1 % (0-5) 06/18/17 10:20 Basophils 3 % (0-3) 06/18/17 10:20 Specimen Source Arterial 06/20/17 09:00 Sample Site RB 06/20/17 09:00 pH 7.44 (7.35-7.45) 06/20/17 09:00 pCO2 49.0 mmHg (35.0-45.0) H 06/20/17 09:00 pO2 49.0 mmHg (80.0-100.0) L* 06/20/17 09:00 HCO3 30.8 mEq/L (20.0-26.0) H 06/20/17 09:00 Base Excess 7.9 mEq/L (-3.0-3.0) H 06/20/17 09:00 O2 Saturation 86.0 % (92.0-100.0) L 06/20/17 09:00 Chris Test NA 06/20/17 09:00 Vent Rate NA 06/20/17 09:00 Inspired O2 21 06/20/17 09:00 Tidal Volume NA 06/20/17 09:00 PEEP NA 06/20/17 09:00 Pressure (ins/psv/peep) NA 06/20/17 09:00 Critical Value SH 06/20/17 09:00 Sodium 138 mEq/L (136-145) 06/22/17 06:00 Potassium 3.2 mEq/L (3.5-5.1) L 06/22/17 06:00 Chloride 99 mEq/L (98-107) 06/22/17 06:00 Carbon Dioxide 32.6 mEq/L (21.0-31.0) H 06/22/17 06:00 Anion Gap 9.6 (7.0-16.0) 06/22/17 06:00 BUN 16 mg/dL (7-25) 06/22/17 06:00 Creatinine 0.7 mg/dL (0.6-1.2) 06/22/17 06:00 Est GFR ( Amer) TNP 06/22/17 06:00 Est GFR (Non-Af Amer) TNP 06/22/17 06:00 BUN/Creatinine Ratio 22.9 06/22/17 06:00 Glucose 158 mg/dL (70-105) H 06/22/17 06:00 Hemoglobin A1c % 6.3 % (4.0-6.0) H 06/18/17 10:20 Whole Bld Lactic Acid 1.75 mmol/L (0.60-1.99) 06/18/17 10:20 Calcium 8.9 mg/dL (8.6-10.3) 06/22/17 06:00 Magnesium 2.6 mg/dL (1.9-2.7) 06/18/17 10:20 Total Bilirubin 0.6 mg/dL (0.3-1.0) 06/19/17 05:25 Direct Bilirubin 0.23 mg/dL (0.0-0.2) H 06/19/17 05:25 AST 17 U/L (13-39) 06/19/17 05:25 ALT 9 U/L (7-52) 06/19/17 05:25 Alkaline Phosphatase 68 U/L (34-104) 06/19/17 05:25 Troponin I 0.03 ng/mL (0.01-0.05) 06/18/17 10:20 B-Natriuretic Peptide 401.0 pg/mL (5.0-100.0) H 06/22/17 06:00 Total Protein 6.1 gm/dL (6.0-8.3) 06/19/17 05:25 Albumin 2.7 gm/dL (3.7-5.3) L 06/19/17 05:25 Globulin 3.4 gm/dL 06/19/17 05:25 Albumin/Globulin Ratio 0.8 (1.0-1.8) L 06/19/17 05:25 TSH 0.73 uIU/ml (0.34-5.60) 06/19/17 05:25 Urine Source CATH 06/18/17 11:00 Urine Color YELLOW 06/18/17 11:00 Urine Clarity CLOUDY (CLEAR) H 06/18/17 11:00 Urine pH 5.0 (4.6 - 8.0) 06/18/17 11:00 Ur Specific [place] >= 1.030 (1.005-1.030) 06/18/17 11:00 Urine Protein 30 mg/dL (NEGATIVE) H 06/18/17 11:00 Urine Glucose (UA) NEGATIVE mg/dL (NEGATIVE) 06/18/17 11:00 Urine Ketones NEGATIVE mg/dL (NEGATIVE) 06/18/17 11:00 Urine Blood SMALL (NEGATIVE) H 06/18/17 11:00 Urine Nitrate NEGATIVE (NEGATIVE) 06/18/17 11:00 Urine Bilirubin SMALL (NEGATIVE) H 06/18/17 11:00 Urine Urobilinogen 2.0 E.U./dL (0.2 - 1.0) 06/18/17 11:00 Ur Leukocyte Esterase MODERATE (NEGATIVE) H 06/18/17 11:00 Urine RBC 2-5 /hpf (0-5) 06/18/17 11:00 Urine WBC 10-25 /hpf (0-5) H 06/18/17 11:00 Ur Epithelial Cells FEW /lpf (FEW) 06/18/17 11:00 Urine Bacteria 3+ /hpf (NONE SEEN) H 06/18/17 11:00 - Physical Exam Vitals and I&O: Vital Signs Temp 98.4 F 06/22/17 04:00 Pulse 87 06/22/17 08:36 Resp 18 06/22/17 07:42 BP 131/71 06/22/17 08:38 Pulse Ox 97 06/22/17 07:42 Intake & Output 06/21/17 06/22/17 06/22/17 18:59 06:59 18:59 Intake Total 100 100 Balance 100 100 Weight (lbs) 96.479 kg Intake: Intake, IV Amount 100 100 Piperacillin Sodium/ 100 100 Tazobact 3.375 gm In Sodium Chloride 0.9% 50 ml @ 100 mls/hr IV Q6H [facility] Rx#:[id number] Other: Stool Characteristics Soft Liquid Active Medications: Current Medications Acetaminophen (Tylenol) 650 mg PO Q6H PRN PRN Reason: HEADACHE/TEMP ABOVE 100F Stop: 08/17/17 14:00 Last Admin: 06/21/17 06:13 Dose: 650 mg Acetaminophen/Hydrocodone Bitart ([place] 5mg/325mg) 1 tab PO TID PRN PRN Reason: Pain (Mild) Stop: 08/17/17 13:56 Last Admin: 06/22/17 03:16 Dose: 1 tab Albuterol/Ipratropium (Duoneb Neb) 3 ml HHN [id number] [facility] Stop: 08/17/17 18:59 Last Admin: 06/22/17 07:33 Dose: 3 ml Albuterol/Ipratropium (Duoneb Neb) 3 ml HHN Q2H PRN PRN Reason: Wheezing Stop: 08/20/17 04:39 Last Admin: 06/21/17 04:49 Dose: 3 ml Atorvastatin Calcium (Lipitor) 20 mg PO DAILY [facility] Stop: 08/18/17 08:59 Last Admin: 06/22/17 08:32 Dose: 20 mg Budesonide (Pulmicort) 0.5 mg HHN BIDRT [facility] Stop: 08/17/17 18:59 Last Admin: 06/22/17 07:42 Dose: 0.5 mg Diazepam (Valium) 5 mg PO Q12HR PRN; Protocol PRN Reason: FOR ANXIETY Stop: 08/20/17 08:59 Last Admin: 06/21/17 23:57 Dose: 5 mg Docusate Sodium (Colace) 100 mg PO DAILY [facility] Stop: 08/18/17 08:59 Last Admin: 06/22/17 08:36 Dose: 100 mg Escitalopram Oxalate (Lexapro) 5 mg PO DAILY [facility] PRN Reason: Protocol Stop: 08/18/17 08:59 Last Admin: 06/22/17 08:32 Dose: 5 mg Furosemide (Lasix) 40 mg IVP DAILY [facility] Stop: 08/21/17 08:59 Last Admin: 06/22/17 08:38 Dose: 40 mg Heparin Sodium (Porcine) (Heparin) 5,000 units SUBQ Q12HR [facility] Stop: 08/17/17 20:59 Last Admin: 06/22/17 08:37 Dose: 5,000 units Piperacillin Sod/Tazobactam (Sod 3.375 gm/ Sodium Chloride) 50 mls @ 100 mls/ hr IV Q6H [facility] Stop: 08/17/17 13:59 Last Admin: 06/22/17 08:37 Dose: 100 mls/hr Sodium Chloride (Nacl 0.9%) 1,000 mls @ 0 mls/hr IV .Q0M [facility] PRN Reason: KVO Stop: 08/20/17 04:40 Ipratropium [place] (Atrovent Neb 0.5mg/2.5ml) 0.5 mg HHN Q4HR PRN PRN Reason: sob Stop: 08/17/17 12:17 Last Admin: 06/21/17 03:40 Dose: 0.5 mg Isosorbide Dinitrate (Isordil) 20 mg PO DAILY [facility] Stop: 08/18/17 08:59 Last Admin: 06/22/17 08:33 Dose: 20 mg Lactobacillus Rhamnosus (Culturelle 15b) 1 each PO DAILY [facility] Stop: 08/19/17 08:59 Last Admin: 06/22/17 08:33 Dose: 1 each Losartan Potassium (Cozaar) 100 mg PO DAILY [facility] Stop: 08/18/17 08:59 Last Admin: 06/22/17 08:36 Dose: 100 mg Miscellaneous (Zosyn Iv Per Pharmacy) 1 [facility] PRN PRN PRN Reason: PROTOCOL Stop: 08/17/17 11:41 Miscellaneous (Probiotic Screen) 1 [facility] PRN PRN PRN Reason: PROTOCOL Stop: 08/18/17 15:29 Morphine Sulfate (Morphine) 2 mg IVP Q4H PRN PRN Reason: moderate pain Stop: 08/17/17 14:00 Last Admin: 06/21/17 23:17 Dose: 2 mg Ondansetron HCl (Zofran) 4 mg IVP Q6H PRN PRN Reason: Nausea / Vomiting Stop: 08/17/17 14:00 Potassium Chloride (Klor-Con) 40 meq PO DAILY PRN PRN Reason: k level less than 3.5 Stop: 08/17/17 14:00 Last Admin: 06/22/17 08:36 Dose: 40 meq Prednisone (Deltasone) 5 mg PO DAILY [facility] Stop: 08/21/17 08:59 Last Admin: 06/22/17 08:37 Dose: 5 mg Zolpidem Tartrate (Ambien) 10 mg PO HS PRN PRN Reason: Insomnia Stop: 08/18/17 20:38 Last Admin: 06/21/17 20:36 Dose: 10 mg General: Cooperative, Mild distress HEENT: Atraumatic, PERRLA Neck: Supple, JVD Cardiovascular: Regular rate, Normal S1, Normal S2 Lungs: Other (Has wheezing and congestion) Assessment/Plan - Assessment Assessment: Asp Pna Acute hypoxemic resp fail Sepsis Mod [place] UTI HTN Obese CHF DM - Plan Plan: Continue bipap, IV Zosyn, O2, and breathing tx. FU on labs, cxr. Dr. Guanako Nava following as pulm. Prog is guarded. Replenish K today. FU on cbc and chem 7 tomorrow.
[2017-06-22] MEDS: Morphine Sulfate 2 mg/mL 1mL Syr IVP PRN (20:49)
--- NOTE | 2017-06-22 23:19 | Progress Notes ---
DATE: 06/22/2017 PROBLEM LIST: 1. Pneumonia, improving with left-sided effusion, not too much changed. 2. Chronic pain, right shoulder as well as left knee. SYMPTOMS: Nil. The patient is quite upset with pain in the right shoulder including the neck. Breathing is okay. Denies of any shortness of breath, coughing or wheezing. PHYSICAL EXAMINATION: VITAL SIGNS: The patient's BP is normal, pulse is 70s, BP is 131/71, saturation 97% on 2 liters per minute. NECK: Veins not visualized. CHEST: Shows diminished air entry with occasional rhonchi. HEART: Regular. ABDOMEN: Soft, nontender. ASSESSMENT: The patient respiratory altman is doing better, still slight effusion. PLANS AND SUGGESTIONS: Okay pulmonary altman to discharge and follow up with a chest x-ray in few days and the pain is being controlled by the primary, Dr. Coto and go from there. JOB# [id number]
[2017-06-23] MEDS: Hydrocodone/APAP 5mg/325mg Tab PO PRN ×3 (02:26→16:19)
[2017-06-23 07:03] LABS: % BASOPHILS 1.1 % (0.0-2.0); % EOSINOPHILS 1.1 % (0.0-5.0); % LYMPHOCYTES 14.9 % (20.0-50.0); % MONOCYTES 4.9 % (2.0-10.0); BASOPHILE ABSOLUTE 0.1 Th/cumm (0-0.2); EOSINOPHILE ABSOLUTE 0.1 Th/cmm (0.1-0.4); LYMPHOCYTE ABSOLUTE 1.3 Th/cmm (1.5-3.0); MEAN CELL VOLUME 90.6 fl (81-100); MEAN CORPUSCULAR HEMOGLOBIN 30.1 pg (27.0-31.0); MEAN CORPUSCULAR HGB CONC 33.3 pg (28.0-36.0); MEAN PLATELET VOLUME 8.2 fl; MONOCYTE ABSOLUTE 0.4 Th/cmm (0.3-1.0); PLATELET COUNT 219 Th/cmm (150-400); RED BLOOD COUNT 3.31 Mil/cmm (3.80-5.20); RED CELL DISTRIBUTION WIDTH 13.4 % (11.5-20.0)
[2017-06-23 07:11] LABS: WHITE BLOOD COUNT 8.9 Th/cmm (4.8-10.8)
[2017-06-23 07:22] LABS: ANION GAP 9.5 (7.0-16.0); BUN - UREA NITROGEN 18 mg/dL (7-25); CALCIUM SERUM 9.1 mg/dL (8.6-10.3); CARBON DIOXIDE 33.6 mEq/L (21.0-31.0); CHLORIDE 100 mEq/L (98-107); CREATININE - SERUM 0.7 mg/dL (0.6-1.2); GLUCOSE 114 mg/dL (70-105); POTASSIUM SERUM 3.1 mEq/L (3.5-5.1); SODIUM SERUM 140 mEq/L (136-145)
[2017-06-23] MEDS: Albuterol/Ipratropium Neb 3 ML AERS HHN SCH ×3 (08:07→15:14)
[2017-06-23] MEDS: Budesonide 0.5 Mg/2 mL Ud HHN SCH (08:07)
[2017-06-23] MEDS: Lactobacillus Rhamnosus GG 15 Billion CFU CAP.SPRINK PO SCH (09:37)
[2017-06-23] MEDS: Atorvastatin Calcium 10 MG TAB PO SCH (09:37)
[2017-06-23] MEDS: Escitalopram Oxalate 5 mg Tab PO SCH (09:39)
[2017-06-23] MEDS: Potassium Chloride 20 mEq ER Tab PO PRN (09:55)
[2017-06-23] MEDS: Morphine Sulfate 2 mg/mL 1mL Syr IVP PRN (11:59)
--- NOTE | 2017-06-23 16:48 | Discharge Summary ---
DATE OF DISCHARGE: 06/23/2017 Date of discharge back to shelter facility 06/23/2017. CAUSE OF ADMISSION: The patient is a pleasant 81-year-old obese female. She has history of hypertension, COPD, chronic pain, and unsteady gait. At the shelter facility, she was experiencing cough, congestion and shortness of breath and decreased O2 saturations. She was sent to the hospital where she was found to have aspiration pneumonia. ADMITTING DIAGNOSES: 1. Aspiration pneumonia. 2. Acute hypoxemic respiratory failure. 3. Sepsis. 4. Moderate malnutrition. 5. Urinary tract infection. 6. Hypertension. 7. Obese. 8. CHF. 9. Diabetes mellitus. DISCHARGE DIAGNOSES: As above. Hypokalemia. E. coli UTI. SUMMARY OF HOSPITAL COURSE: The patient was started on breathing treatments, O2. Dr. Nava saw the patient. She was put on BiPAP. She has been breathing better for the last couple of days. She has been on IV Zosyn. She also had CHF changes on chest x-ray. Pulmonary was consulted. ABG showed acute hypoxemic respiratory failure. She was placed on breathing treatments and diuretics as well as she has been on IV Zosyn. Her cough and congestion has improved significantly as well. Also, the patient's urine culture showed E. coli UTI, which is susceptible to Zosyn. PHYSICAL EXAMINATION: VITAL SIGNS: Temperature 96.5 degrees, heart rate is 92, respiration is 18, blood pressure 148/69. Currently, no pain. GENERAL: No acute distress, awake. She is alert. HEENT: No acute issues. NECK: Trachea is midline. CARDIOVASCULAR: Regular rate and rhythm. RESPIRATORY: Decreased breath sounds bilaterally. EXTREMITIES: 1+ edema lower extremities bilaterally. PSYCHIATRIC: No psychosis or hallucinations. LABORATORY DATA: Sodium 138, potassium 3.2, chloride 99, bicarbonate 32.6, BUN 16, creatinine 0.7. BNP is 401. Albumin is 2.7. White count is 5.7, has trended down from 18, hemoglobin is 10, and platelet count 215,000. The patient's chest x-ray done on 06/21/2017 did confirm CHF changes along with infiltrate as well. PROGNOSIS: Fair. DISPOSITION: The patient is being discharged back to shelter facility. She has been cleared for discharge by the fitness teacher. MEDICATIONS: All medications reviewed and reconciled. CONSULTS: Dr. Guanako Nava for Pulmonary and Dr. Malcolm Nava for cardiology. [facility]# [id number]
== END 2017-06-23 16:43 | disposition home or self-care (01) | DRG 871 ==
LOC: ER 09:14 → TELE 12:01
PROVIDERS: ADMIT General Practice; ATTEND General Practice
PROC: 5A09457 Assistance with Respiratory Ventilation, 24-96 Consecutive Hours, Continuous Positive Airway Pressure (ICD-10-PCS; principal; 2017-06-18)
PROC: 5A09357 Assistance with Respiratory Ventilation, Less than 24 Consecutive Hours, Continuous Positive Airway Pressure (ICD-10-PCS; 2017-06-22)
DX: A41.9 Sepsis, unspecified organism (principal); J69.0 Pneumonitis due to inhalation of food and vomit; J96.21 Acute and chronic respiratory failure with hypoxia; E44.0 Moderate protein-calorie malnutrition; R13.10 Dysphagia, unspecified; E66.01 Morbid (severe) obesity due to excess calories; E11.36 Type 2 diabetes mellitus with diabetic cataract; N39.0 Urinary tract infection, site not specified; J44.1 Chronic obstructive pulmonary disease with (acute) exacerbation; I11.0 Hypertensive heart disease with heart failure; I50.9 Heart failure, unspecified; G35 Multiple sclerosis; I25.10 Atherosclerotic heart disease of native coronary artery without angina pectoris; H26.9 Unspecified cataract; E78.5 Hyperlipidemia, unspecified; F41.9 Anxiety disorder, unspecified; G89.29 Other chronic pain; R27.0 Ataxia, unspecified; F32.9 Major depressive disorder, single episode, unspecified; B96.20 Unspecified Escherichia coli [E. coli] as the cause of diseases classified elsewhere; Z68.34 Body mass index [BMI] 34.0-34.9, adult
CPT/HCPCS: 36415-UA; 36600-90; 71010-TC; 71250-TC; 73650-TC-LT; 80048-TC; 80053-TC; 80076-TC; 81001-TC; 82803-TC; 83036-90; 83605; 83735-TC; 83880-TC; 84443-TC; 84484-TC; 85007-TC; 85025-TC; 85027-TC; 87070; 87086-90; 90779; 93005; 93971-TC-LT; 94640; 94660; 94760; J0456; J0696; J1644; J1940; J2270; J2543; J2920; J7030; J7512; Z7610